=== PATIENT | female | born 1990 ===

== ENCOUNTER 2018-04-01 10:08 | Outpatient (CLI) | payer BC ==
--- NOTE | 2018-04-01 10:35 | RAD ---
RIGHT HAND 3 VIEWS: Date: 04/01/18 HISTORY: Cellulitis of hand. FINDINGS: There are no signs of fracture. No bony changes of osteomyelitis. IMPRESSION: Unremarkable right hand. POS: [facility]
== END 2018-04-01 10:09 | disposition home or self-care (01) ==
LOC: BICRAD 10:08
PROVIDERS: ATTEND Family Medicine
DX: L03.011 Cellulitis of right finger (principal)